=== PATIENT | female | born 1930 | race Caucasian/White ===

== ENCOUNTER 2016-09-18 11:48 | Emergency (ER) | payer OTHER, MEDICARE ==
[~2016-09-18] VITALS: Ht 165.1 cm; Wt 61.9 kg
[~2016-09-18 11:48] MED LIST: ADULT LOW STREN81 M3 PO; ASCORBIC ACID500 M1 PO; ASPIRIN81 M1 PO; ATORVASTATIN CA40 MG PO; ATORVASTATIN PO; CARDIZEM120 MG PO; CLARITIN10 M3 PO; COQ-10100 MG PO; COQ10 SG 100 S1 EACH PO; Cardizem CD,Cartia X PO; Colace PO; DILTIAZEM 24HR120 MG; DILTIAZEM 24HR120 MG PO; DILTIAZEM 24HR240 MG PO; Ecotrin PO; FERROUS SULFAT324 M1 PO; Feosol PO; Flonase BOTH NARES; HYDROCHLOROTH12.5 M3 PO; HYDROXYZINE HCL25 MG PO; K-DUR20 MEQ PO; K-TAB10 MEQ PO; LASIX PO; LASIX40 MG PO; LIDODERM 5% P1 PATCH TD; LIPITOR40 MG PO; LOSARTAN POTASS25 MG PO; MULTIVITAMIN1 EAC2 PO; PREMARIN0.3 MG PO; PREMARIN0.625 MG PO; PRILOSEC20 MG PO; Proventil,Ventolin H IH; SIMVASTATIN80 M1 PO; VESICARE5 MG PO; VITAMIN A8000 UNIT PO; VITAMIN B12-FO1 EACH PO; VITAMIN D31000 UNI2 PO; VITAMIN D31000 UNIT PO; VITAMIN D32000 UNIT; XARELTO10 MG; XARELTO10 MG PO; Xarelto PO; ZESTRIL20 MG PO; Zithromax PO
[2016-09-18 12:42] LABS: HEMATOCRIT 43.1 % (36.0-46.0); MCH 31.3 PG (29.0-34.0); MCHC 33.6 G/DL (30.0-36.0); MCV 92.9 FL (83-99); MEAN PLAT.VOLUME 10.1 uM^3 (9.5-12.4); PLATELET COUNT 246 K/uL (156-360); RBC DIS.WIDTH-CV 14.7 % (11.8-14.6); RBC DIS.WIDTH-SD 48.4 % (39-53); RED BLOOD COUNT 4.64 M/uL (3.80-5.20); WHITE BLOOD COUNT 8.5 K/uL (4.1-10.2)
[2016-09-18 13:01] LABS: CHLORIDE 104 mEq/L (99-109); SODIUM 138 mEq/L (136-147)
[2016-09-18 13:02] LABS: GLUCOSE 102 mg/dL (70-99)
[2016-09-18 13:04] LABS: ANION GAP 9 MEQ/L (2-14)
[2016-09-18 13:06] LABS: GFR ESTIMATE (CALCULATED) 45 mL/min/
[2016-09-18 13:07] LABS: POTASSIUM 4.5 mEq/L (3.7-5.4); UREA NITROGEN (BUN) 20 mg/dL (9-23)
[2016-09-18 13:30] LABS: TOTAL BILIRUBIN 0.6 mg/dL (0.0-1.0)
[2016-09-18 13:32] LABS: ALKALINE PHOSPHATASE 134 IU/L (3-129)
[2016-09-18 13:34] LABS: DIRECT BILIRUBIN 0.2 mg/dL (0.0-0.3)
[2016-09-18 13:35] LABS: LIPASE 10 U/L (1.0-51.0)
[2016-09-18] MEDS ORDERED: TESSALON PERLE100 MG PO (15:27)
[2016-09-18 15:50] VITALS: BP 115/71
== END 2016-09-18 16:09 | disposition home or self-care (01) ==
LOC: EME 11:48
DX: J81.1 Chronic pulmonary edema (principal); K57.90 Diverticulosis of intestine, part unspecified, without perforation or abscess without bleeding; E78.5 Hyperlipidemia, unspecified; I10 Essential (primary) hypertension; K21.9 Gastro-esophageal reflux disease without esophagitis; Z87.442 Personal history of urinary calculi
CPT/HCPCS: 71020; 71260; 74177; 80048; 80076; 83690; 83880; 85027; 87502; 99281; 99284; J7030

== ENCOUNTER → 2016-11-17 | Outpatient (CLI) | payer OTHER, MEDICARE ==
[~2016-11-17] MED LIST changes: +TESSALON PERLE100 MG PO
== END | disposition home or self-care (01) ==
DX: R13.10 Dysphagia, unspecified (principal)
CPT/HCPCS: 92611 GN; G8996 GN; G8997 GN; G8998 GN

== ENCOUNTER 2017-09-06 18:02 | Inpatient (IN) | payer OTHER, MEDICARE ==
[~2017-09-06] VITALS: Ht 154.9 cm; Wt 61.6 kg
[~2017-09-06 18:02] MED LIST changes: +VESICARE10 MG PO; -VESICARE5 MG PO; +XARELTO20 MG PO
[2017-09-06 19:55] LABS: HEMATOCRIT 43.5 % (36.0-46.0); MCHC 34.5 G/DL (30.0-36.0); MCV 95.8 FL (83-99); PLATELET COUNT 232 K/uL (156-360); RBC DIS.WIDTH-CV 13.4 % (11.8-14.6); RBC DIS.WIDTH-SD 47.8 % (39-53); RED BLOOD COUNT 4.54 M/uL (3.80-5.20); WHITE BLOOD COUNT 10.7 K/uL (4.1-10.2)
[2017-09-06 20:04] LABS: ALBUMIN 4.1 g/dL (3.2-4.8); CHLORIDE 102 mEq/L (99-109); POTASSIUM 3.8 mEq/L (3.7-5.4); SODIUM 138 mEq/L (136-147)
[2017-09-06 20:06] LABS: GLUCOSE 130 mg/dL (70-99); TOTAL PROTEIN 7.7 g/dL (6.4-8.3)
[2017-09-06 20:08] LABS: TOTAL BILIRUBIN 0.5 mg/dL (0.0-1.0)
[2017-09-06 20:10] LABS: ALKALINE PHOSPHATASE 117 IU/L (3-129); CREATININE 1.1 mg/dL (0.6-1.3); GFR ESTIMATE (CALCULATED) 50 mL/min/
[2017-09-06 20:11] LABS: UREA NITROGEN (BUN) 20 mg/dL (9-23)
[2017-09-06 20:12] LABS: AST (GOT) 35 IU/L (2-34)
[2017-09-06 20:13] LABS: ALT (GPT) 28 IU/L (3-49); LIPASE 10 U/L (1.0-51.0)
[2017-09-06 21:00] LABS: PTT 26.2 SEC (25-37)
[2017-09-06 21:00] LABS: BASE EXCESS 2.9 mEq/L (-3 to +3); BICARBONATE 27.9 mEq/L (22-26); CARBOXY HGB 1.6 % (0-5); METHEMOGLOBIN 1.1 % (0-1.5); PCO2 43 mm Hg (35-45); PO2 76 mm Hg (80-100); pH 7.42 (7.35-7.45)
[2017-09-06 21:02] LABS: COMMENTS - BLOOD GASES A+C+; DEVICE RA; FI02 21 %; SITE RR; TOTAL RESP RATE 22 resp/min
[2017-09-06] MEDS ORDERED: HYDROCODON-ACE1 EAC7 PO (22:06)
[2017-09-07 01:50] LABS: HEMATOCRIT 39.9 % (36.0-46.0); HEMOGLOBIN 13.9 G/DL (11.9-15.5); MCH 33.3 PG (29.0-34.0); MCHC 34.8 G/DL (30.0-36.0); MCV 95.7 FL (83-99); PLATELET COUNT 195 K/uL (156-360); RBC DIS.WIDTH-CV 13.2 % (11.8-14.6); RBC DIS.WIDTH-SD 46.8 % (39-53); RED BLOOD COUNT 4.17 M/uL (3.80-5.20)
[2017-09-07 02:13] LABS: TROP-I INTERPRETATION NEGATIVE; TROPONIN-I 0.02 ng/mL (0.0-0.30)
[2017-09-07 03:40] LABS: HDL CHOLESTEROL 75 MG/DL (Desirable>=50); LDL CHOLESTEROL 66 mg/dL (Desirable<100); NON-HDL CHOLESTEROL 74 mg/dL (Desirable<160); TOTAL CHOLESTEROL 149 mg/dL (Desirable<200); TRIGLYCERIDES 38 MG/DL (Normal: <150)
[2017-09-07 10:43] LABS: HEMOGLOBIN A1c (GLYCOHEMOGLOB) 5.4 % (Below 5.7)
[2017-09-07 13:13] LABS: TROP-I INTERPRETATION NEGATIVE; TROPONIN-I 0.02 ng/mL (0.0-0.30)
[2017-09-07 15:45] VITALS: BP 135/61
[2017-09-07 18:20] LABS: TROP-I INTERPRETATION NEGATIVE; TROPONIN-I 0.01 ng/mL (0.0-0.30)
[2017-09-07 20:36] VITALS: BP 132/68
[2017-09-07 23:44] VITALS: BP 122/68
[2017-09-08 04:05] VITALS: BP 98/53
[2017-09-08 08:30] VITALS: BP 99/59
[2017-09-08 11:35] VITALS: BP 118/59
[2017-09-08 14:35] VITALS: BP 96/53
== END 2017-09-08 15:38 | disposition home or self-care (01) | DRG 103 ==
LOC: EME 18:02 → 4EAST 09-07 00:57 → EDOF 09-07 00:57 → ENRESERV 09-07 01:05 → 4EAST 09-07 11:50
PROVIDERS: Emergency Medicine; Hospitalist
DX: R51 Headache (principal); I48.3 Typical atrial flutter; R11.10 Vomiting, unspecified; I65.23 Occlusion and stenosis of bilateral carotid arteries; I10 Essential (primary) hypertension; I48.91 Unspecified atrial fibrillation; E78.5 Hyperlipidemia, unspecified; M85.80 Other specified disorders of bone density and structure, unspecified site; I34.0 Nonrheumatic mitral (valve) insufficiency; I73.9 Peripheral vascular disease, unspecified; K21.9 Gastro-esophageal reflux disease without esophagitis; Z96.652 Presence of left artificial knee joint; Z87.442 Personal history of urinary calculi; Z90.710 Acquired absence of both cervix and uterus; Z87.11 Personal history of peptic ulcer disease; Z80.3 Family history of malignant neoplasm of breast; Z85.828 Personal history of other malignant neoplasm of skin; Z82.3 Family history of stroke
CPT/HCPCS: 36600; 70450; 70551; 80053; 80061; 81003; 82803; 83036; 83690; 84484; 85027; 85610; 85652; 85730; 93005; 99281; 99285; J7030; J7050